=== PATIENT | female | born 1990 | race Caucasian/White ===

== ENCOUNTER → 2018-05-04 | Day surgery (SDC) | payer OTHER ==
[~2018-05-04] VITALS: Ht 162.6 cm; Wt 105.2 kg
--- NOTE | 2018-05-04 13:54 | Operative Report ---
Operative/Inv Procedure Report Surgery Date: 05/04/18 Name of Procedure: Bilateral breast reduction with free nipple techniqueexcessive Pre-Operative Diagnosis: Symptomatic macromastia bilateral Post-Operative Diagnosis: Same Estimated Blood Loss: scant (250) Surgeon/Demolition Crane Operator: Meliton BUENO,Erasmo Awad Anesthesia: general endotracheal tube Operative/Procedure Note Note: Patient was counseled extensively on multiple occasions including today in regards to the procedure the alternatives the risks and expected outcomes as relates to request for surgical intervention to treat symptomatic macromastia with the free nipple technique. She was given a SPS informed consent which we have discussed and she has no questions regarding that material today. I talked again about the free nipple technique which will be reapplied as a skin graft they will be unable to feel sensitivity or be erectile or breast-feed. Partial complete loss of the nipple and/or really can occur. He will be definite asymmetry postoperatively as there is preoperatively there is a risk of an feeding infection bleeding pain numbness open wounds requiring prolonged wound care with increased scarring. No guarantees were given in regard to symptom improvement. She was marked in the standing position for a inverse T closure. Informed consent consent was signed. She was also told the surgery does not treat the lateral chest. She was brought to the operating room placed supine on the table. Venodyne boots were placed and then general anesthesia was established intravenous antibiotics were given. Chest was prepped and draped in usual sterile fashion. An inferior pedicle was de-epithelialized as well as the inverted V portion superiorly. Segments were then removed in the intervening areas. This was done bilaterally. Sutures were placed deep to support the tissues were needed. Patient was temporarily closed and put in the sitting position to assess nipple areolar complex location and symmetry. Once complete 3 layer closure was carried out of the wounds and the nipple areolar complex was defatted and placed in a de-epithelialized location. Bolster dressing was placed on the nac,s. Of note the grams per side was approximately 2000 just a finding an extensive procedure due to the increased time planning manipulation of the tissues.
== END ==
LOC: STS 01:59
DX: N62 Hypertrophy of breast (principal); M54.5 Low back pain; R06.09 Other forms of dyspnea; F17.290 Nicotine dependence, other tobacco product, uncomplicated; E66.01 Morbid (severe) obesity due to excess calories; Z68.41 Body mass index [BMI] 40.0-44.9, adult; J42 Unspecified chronic bronchitis
CPT/HCPCS: 81025; J0690; J2250; J2405; Q9968